=== PATIENT | male | born 1955 | race Caucasian/White ===

== ENCOUNTER → 2017-05-23 | Outpatient (CLI) | payer OTHER ==
[~2017-05-23] MED LIST: IOPAMIDOL (ISOVUE-370) 150 ML BTL IV ONE
== END ==
LOC: FIMAGING 08:21
PROVIDERS: ATTEND Internal Medicine Cardiovascular Disease
DX: I70.212 Atherosclerosis of native arteries of extremities with intermittent claudication, left leg (principal); I73.9 Peripheral vascular disease, unspecified; I70.0 Atherosclerosis of aorta; E78.00 Pure hypercholesterolemia, unspecified; I25.10 Atherosclerotic heart disease of native coronary artery without angina pectoris; Z86.73 Personal history of transient ischemic attack (TIA), and cerebral infarction without residual deficits
CPT/HCPCS: Q9967

== ENCOUNTER 2017-08-18 06:54 | Observation (INO) | payer OTHER ==
[2017-08-18] MEDS ORDERED: DIAZEPAM 5 MG TAB PO ONE (07:18)
[2017-08-18] MEDS ORDERED: ASPIRIN EC 325 MG TAB PO ONE (07:18)
[2017-08-18] MEDS ORDERED: FAMOTIDINE 20 MG TAB PO ONE (07:18)
[2017-08-18] MEDS ORDERED: diphenhydrAMINE 25 MG CAP PO ONE (07:18)
[2017-08-18] MEDS ORDERED: NS 1,000 ML IV ONE (07:18)
--- NOTE | 2017-08-18 07:38 | CPEKG ---
Heart Rate: 67 RR Interval: 896 P-R Interval: 176 QRSD Interval: 112 QT Interval: 404 QTC Interval: 427 P [place]: 73 QRS [place]: 27 T Wave [place]: 49 EKG Severity - ABNORMAL ECG - EKG Impression: SINUS RHYTHM EKG Impression: INCOMPLETE RIGHT BUNDLE BRANCH BLOCK EKG Impression: BORDERLINE R WAVE PROGRESSION, ANTERIOR LEADS Electronically Signed By: Derick Abarca 18-Aug-2017 12:17:21
[2017-08-18 07:57] LABS: PLATELET COUNT 158 10^3/uL (150-400)
[2017-08-18 08:15] LABS: INR 0.89 (0.83-1.16); PROTIME(PATIENT) 12.3 SEC (12.0-15.0)
[2017-08-18] MEDS ORDERED: MIDAZOLAM 2 MG/2 ML VIAL ONE ×3 (08:43→11:05)
[2017-08-18] MEDS ORDERED: IOPAMIDOL (ISOVUE-300) 150 ML BTL ONE ×3 (08:43→10:58)
[2017-08-18] MEDS ORDERED: fentaNYL 100 MCG/2 ML INJ ONE ×2 (08:43→09:56)
[2017-08-18] MEDS ORDERED: LIDOCAINE 1% 300 MG/30 ML SDV ONE (08:44)
--- NOTE | 2017-08-18 09:29 | PDPROPOC ---
Sedation Plan of Care Sedation Plan of Care: vital signs stable, mental status noted, patient educated of risks, benefits, alternatives, patient can tolerate sedation ASA Classification: ASA 2 Planned drugs: fentanyl, midazolam Mallampati Score: Class 2 Mallampati Reference Image: Patient passed 3-3-2 rule?: Yes
--- NOTE | 2017-08-18 09:33 | PDGENHP ---
History & Physical Chief Complaint: dyspnea and claudication History of Present Illness: Pt has known CAD and is s/p CABG. He presents with symptoms of BOWLING and claudication L > R. Relevant Physical Exam: lungs CTA. RRR, S1, S2. Decreased DP and PT on L Cardiorespiratory Assessment: 1. BOWLING - Pt has known CAD and is s/p CABG. He is primarily limited by claudication but does report BOWLING. Plan on coronary angiogram and grafts to evaluate symptoms of BOWLING and pre-op risk stratification if surgery is needed for PVD. 2. Claudication - Pt presents with L > R lower extremity claudication. He has known SFA disease. Plan on angiogram +/- intervention.
[2017-08-18] MEDS ORDERED: HEPARIN 10,000 UNIT/10 ML MDV (1,000 UNIT/ML) ONE (10:32)
[2017-08-18] MEDS ORDERED: NITROGLYCERIN 0.4 MG BTL SL PRN (12:03)
[2017-08-18] MEDS ORDERED: ONDANSETRON 4 MG/2 ML VIAL IVP PRN (12:03)
[2017-08-18] MEDS ORDERED: ATROPINE SULFATE 1 MG/10 ML SYR IVP PRN (12:03)
[2017-08-18] MEDS ORDERED: HYDROCODONE/APAP 5/325 TAB PO PRN (12:03)
[2017-08-18] MEDS ORDERED: OXYCODONE/APAP 5/325 TAB PO PRN (12:03)
--- NOTE | 2017-08-18 12:31 | CPIP ---
[f rep st] INVASIVE CARDIAC PROCEDURE DATE OF PROCEDURE: 08/18/2017 PROCEDURES PERFORMED: 1. Coronary angiography. 2. Bypass graft angiography. 3. Left ventricular end-diastolic pressure. 4. Abdominal aortography. 5. Left lower extremity angiography via contralateral approach with catheter placed in the left exte rnal iliac artery. 6. Right lower extremity angiography via ipsilateral approach with catheter placed in the right comm on iliac artery. INDICATION: 1. Known coronary artery disease with symptoms of dyspnea on exertion concerning for potential class 2-3 angina. 2. Lifestyle limiting claudication suggestive of left SFA stenosis. ACCESS: The patient was prepped and draped in sterile fashion. 1% lidocaine was used to anesthetize the right inguinal region. A 6-Montserratian introducer sheath was placed selectively into the right commo n femoral artery via modified Seldinger technique. CORONARY ANGIOGRAPHY: A 6-Montserratian JL4 was advanced to the left main coronary artery and images obtain ed. The left main coronary artery bifurcated into an LAD and circumflex coronary arteries. The left main coronary artery appeared normal. The left anterior descending coronary artery had a segmental 60% to 70% stenosis in the midvessel. The distal vessel is being filled by patent CLAYTON to LAD graft. The circumflex coronary artery is a large vessel but was nondominant. Circumflex coronary artery w as 100% occluded in the mid vessel. The distal vessel was being fed by a skip graft from the CLAYTON to the OM artery. A 6-[place]serratian JR4 was advanced to the right coronary artery and images obtained. The r ight coronary artery is dominant. The right coronary artery was 100% occluded in the mid vessel. Th e distal vessel is being filled by left to right collaterals. BYPASS GRAFT ANGIOGRAPHY: A 6-Montserratian JR4 was used to engage the saphenous vein graft to right jiménez ry artery. The saphenous vein graft to right coronary artery was 100% occluded. The 6-Montserratian JR4 wa s used to engage the left subclavian artery then exchanged for a 6-Montserratian ZACHARY catheter. The 6-Montserratian ZACHARY catheter was used to engage the CLAYTON to LAD, and skip graft to the circumflex coronary arteries. The CLAYTON to LAD graft was widely patent. The skip graft from the CLAYTON graft to the circumflex was widely patent. ABDOMINAL AORTOGRAPHY: A 6-Montserratian pigtail catheter was placed in the abdominal aorta and images obta ined via power injection through the [employer] system. The distal abdominal aorta was aneurysmal follow ed by a stenotic segment followed by a 2nd aneurysmal segment. It then bifurcated into the left and right common iliac arteries. The left and right common iliac arteries were previously stented. The previously placed stents were widely patent. Left lower extremity angiography via contralateral appr oach with catheter placed in the left external iliac artery. A 5-Montserratian Contra 2 catheter was placed in the distal abdominal aorta and position verified by angiography. The 5-Montserratian Contra 2 catheter was used to engage the left common iliac artery. The left common iliac artery bifurcated into the in ternal and external iliac arteries. The left common iliac artery was previously stented in the proxi mal and ostial segments. The previously placed stent was widely patent. Just distal to the previous ly placed stent there were sequential 30% stenosis present. The ostium of the internal iliac artery was 50% stenosed. The left external iliac artery was free of any significant disease. An angled Gli dewire was then placed in the left common femoral artery and the Contra [address] a [address] Digital Riveright flush catheter. The remainder of the left lower extremity was obtained via hand injection thr ough the straight flush catheter. The left external iliac artery turned into the left common femoral artery. The left external iliac artery and common femoral arteries were normal. The left common fe moral artery then bifurcated into the superficial femoral artery and profunda femoral arteries. The superficial femoral artery was diffusely diseased in the proximal mid segments. In the mid segment, there were sequential 80% stenosis present. These likely represented the lesions that caused the pat ient's symptoms. The left superficial femoral artery then turned into the popliteal artery. The pop liteal artery was free of any significant disease. Below the knee there is 3 vessel runoff. Right l ower extremity angiography via ipsilateral approach with catheter placed in the right common iliac ar sridevi. The straight flush catheter was placed in the right common iliac artery and images obtained. The right common iliac artery bifurcated into the internal and external iliac arteries. The right co mmon iliac artery was previously stented. The previously placed stent was widely patent with no evid ence of significant stenosis. The right internal iliac artery had an ostial 50% stenosis present. T he right external iliac artery had a 20% stenosis present. The right external iliac artery then turn ed into the common femoral artery. The common femoral artery is free of any significant disease. Th e common femoral artery then bifurcated into the superficial femoral artery and profunda femoral genoveva ry. The right superficial femoral artery had sequential 30% stenosis present. The profunda femoral artery is free of any significant disease. The right superficial femoral artery then turned into the popliteal artery. The popliteal artery was free of any significant disease. Below the knee there i s 3 vessel runoff. Intervention of the left superficial femoral artery. It was decided to perform intervention of the l eft superficial femoral artery. It was decided to use antegrade left common femoral artery access fo r the intervention given previous common iliac stenting. The [employer], was used to gain access into the left common femoral artery. A guidewire was advanced followed by the sheath. After injecting t hrough the sheath it was noted that we accessed the common femoral artery and then into the profunda femoral artery. An attempt was made at trying to pull the sheath back and redirect into the superfic ial femoral artery. The sheath came out and it was decided to hold pressure and hold intervention at this time. COMPLICATIONS: None. CONCLUSIONS: 1. Three vessel coronary artery disease. 2. Patent CLAYTON to LAD graft and patent skip graft to the circumflex coronary artery. 3. Occluded saphenous vein graft to right coronary artery and occluded [place] right coronary artery. The right coronary artery is filled via left to right collaterals. 4. Normal left ventricular end-diastolic pressure. 5. A sequential 80% stenosis in the left superficial femoral artery consistent with the patient's sy mptoms of claudication. /[id number]/MODL
[2017-08-18] MEDS ORDERED: FAMOTIDINE 20 MG TAB PO PRN (21:00)
[2017-08-19 08:48] VITALS: BP 123/77
[2017-08-19] MEDS ORDERED: EZETIMIBE 10 MG TAB PO SCH (09:00)
[2017-08-19] MEDS ORDERED: CLOPIDOGREL BISULFATE 75 MG TAB PO SCH (09:00)
[2017-08-19] MEDS ORDERED: ATORVASTATIN CALCIUM 40 MG TAB PO SCH (09:00)
[2017-08-19] MEDS ORDERED: ASPIRIN 325 MG TAB PO SCH (09:00)
--- NOTE | 2017-08-19 09:52 | ASDISCHSUM ---
Discharge Information Plan Status:Home with No Needs Medically Cleared to Leave:08/19/2017 Discharge Date:08/19/2017 CM D/C Disposition:Home, Routine, Self-Care ADT D/C Disposition:Home, Routine, Self-Care Projected Discharge Date:08/19/2017 Transportation at D/C: Discharge Delay Reason: Follow-Up Date:08/19/2017 Discharge Slot: Final Diagnosis: Placement Information Patient Contact Information Contact Name:GIANFRANCO Relationship: Address: Home Phone: Work Phone: City: Alternate Phone: State/LocAsian Code: Email: Financial Information Financial Class:[employer] Primary Plan Desc:ZANE AU Primary Plan Number:[id number] Secondary Plan Desc: Secondary Plan Number: Assessment Information LACE LACE Length of stay for Answers: Less than 1 day current admission Acuity / Level of Answers: No Care: Did the patient have an inpatient admission? Comorbidities - select Answers: Coronary Artery Disease all that apply Other Notes: CABG # of Emergency department Answers: 0 visits in the last 6 months Score: 3 Date Signed: 08/19/2017 09:52 AM Electronically Signed By:Radha Costa RN Intervention Information
--- NOTE | 2017-08-19 15:01 | GDS ---
[f rep st] DISCHARGE SUMMARY DISCHARGE DIAGNOSES: 1. Peripheral vascular disease with failed attempt to cannulate the left superficial femoral artery on this admission. 2. Known coronary artery disease status post bypass surgery in 2011, status post left heart catheter ization on this admission. 3. Dyslipidemia. 4. Former tobacco abuse. PROCEDURES: 1. Left heart catheterization that showed 3 vessel coronary artery disease. There is a patent CLAYTON to LAD graft and patent skip graft to the circumflex coronary artery. There was an occluded saphenou s vein graft to the right coronary artery and an occluded w[place]ot right coronary artery. The right co ronary artery is filled via weiq-lq-yyfhk collaterals. 2. Peripheral angiography. There is sequential 80% stenosis in the left superficial femoral artery consistent with the patient's claudication symptoms. An attempt was made to cannulate this, but upon trying to pull the sheath back and redirect it into the superficial femoral artery, the sheath came out and the study was aborted at that point. PHYSICIANS: Tylor Cosby MD BRIEF HISTORY: Please see dictated H and P from our office for complete details. In brief, the rehana ent is a 62-year-old male with a known history of coronary artery disease status post coronary artery bypass grafting, dyslipidemia, who presented to Dr. Cosby with complaints of profound fatigue. Thi s also had preceded his previous intervention with bypass surgery. Additionally, he has been noting severe leg pains on ambulation. HOSPITAL COURSE BY PROBLEM: 1. Coronary artery disease. His RCA graft is occluded, but he has zbvh-mf-[id number] collaterals present . He may maintain ongoing medical therapy. 2. Failed attempt to cannulate the left SFA. He will likely come back in 2 weeks time for repeat in tervention. 3. Dyslipidemia. Total cholesterol is 138, LDL 70, HDL of 45, triglycerides 116. PHYSICAL EXAM: VITAL SIGNS: On day of discharge, blood pressure 123/77, heart rate of 74, respirati ons 18, O2 saturation 93% on room air. GENERAL: He is a very pleasant male in no apparent distress. HEART: Regular rate and rhythm and rhythm. EXTREMITIES: Bilateral groin sites without bruit or ecchymosis. There is trace to 1+ PT and DP pulse s bilaterally. CBC on day of discharge is WBC 5.5, hemoglobin 14.4, hematocrit 42.5, platelet count of 144. RESULTS PENDING: None. DIET: Cardiac. ACTIVITY: Groin precautions were reviewed. DISCHARGE MEDICATIONS: Please see med reconciliation. He may resume his home ranitidine, Zetia, carissa pidogrel, atorvastatin, and aspirin therapy. FOLLOWUP INSTRUCTIONS: 1. Followup for groin check in 1 week's time. 2. Follow up with Dr. Cosby for repeat attempt at left SFA intervention. /[id number]/MODL
== END 2017-08-19 10:50 | disposition home or self-care (01) ==
LOC: FCATH 06:54 → F2W 12:03
PROVIDERS: ADMIT Internal Medicine Cardiovascular Disease; ATTEND Internal Medicine Cardiovascular Disease
PROC: 04HJ33Z Insertion of Infusion Device into Left External Iliac Artery, Percutaneous Approach (ICD-10-PCS; principal; 2017-08-18)
PROC: 04HC33Z Insertion of Infusion Device into Right Common Iliac Artery, Percutaneous Approach (ICD-10-PCS; principal; 2017-08-18)
PROC: B2111ZZ Fluoroscopy of Multiple Coronary Arteries using Low Osmolar Contrast (ICD-10-PCS; principal; 2017-08-18)
PROC: 4A023N7 Measurement of Cardiac Sampling and Pressure, Left Heart, Percutaneous Approach (ICD-10-PCS; principal; 2017-08-18)
PROC: B2151ZZ Fluoroscopy of Left Heart using Low Osmolar Contrast (ICD-10-PCS; principal; 2017-08-18)
DX: I73.9 Peripheral vascular disease, unspecified (principal); I25.10 Atherosclerotic heart disease of native coronary artery without angina pectoris; E78.5 Hyperlipidemia, unspecified; Z87.891 Personal history of nicotine dependence
CPT/HCPCS: C1769; G0378; J0461; J1644; J2250; J3010; Q9967

== ENCOUNTER 2017-09-05 06:59 | Observation (INO) | payer OTHER ==
[2017-09-05] MEDS ORDERED: diphenhydrAMINE 25 MG CAP PO ONE ×2 (07:03→07:22)
[2017-09-05] MEDS ORDERED: DIAZEPAM 5 MG TAB PO ONE (07:03)
[2017-09-05] MEDS ORDERED: FAMOTIDINE 20 MG TAB PO ONE (07:03)
[2017-09-05] MEDS ORDERED: ASPIRIN EC 325 MG TAB PO ONE (07:03)
[2017-09-05] MEDS ORDERED: NS 1,000 ML IV ONE (07:03)
--- NOTE | 2017-09-05 07:19 | CPEKG ---
Heart Rate: 76 RR Interval: 789 P-R Interval: 168 QRSD Interval: 114 QT Interval: 408 QTC Interval: 459 P [place]: 84 QRS [place]: 29 T Wave [place]: 53 EKG Severity - ABNORMAL ECG - EKG Impression: SINUS RHYTHM EKG Impression: INCOMPLETE RIGHT BUNDLE BRANCH BLOCK Electronically Signed By: Kvng Craig 05-Sep-2017 07:38:43
[2017-09-05] MEDS ORDERED: DIAZEPAM 5 MG TAB ONE (07:22)
[2017-09-05] MEDS ORDERED: FAMOTIDINE 20 MG TAB ONE (07:22)
[2017-09-05 07:37] LABS: PLATELET COUNT 169 10^3/uL (150-400)
[2017-09-05 07:45] LABS: INR 0.92 (0.83-1.16); PROTIME(PATIENT) 12.6 SEC (12.0-15.0)
[2017-09-05] MEDS ORDERED: fentaNYL 100 MCG/2 ML INJ ONE ×2 (08:34→09:46)
[2017-09-05] MEDS ORDERED: MIDAZOLAM 2 MG/2 ML VIAL ONE ×3 (08:34→09:31)
[2017-09-05] MEDS ORDERED: LIDOCAINE 1% 300 MG/30 ML SDV ONE ×2 (08:34→09:10)
[2017-09-05] MEDS ORDERED: IOPAMIDOL (ISOVUE-300) 150 ML BTL ONE (08:34)
[2017-09-05] MEDS ORDERED: HEPARIN 10,000 UNIT/10 ML MDV (1,000 UNIT/ML) ONE (08:34)
--- NOTE | 2017-09-05 09:19 | PDGENHP ---
History & Physical Chief Complaint: claudication History of Present Illness: Pt has known CAD and PVD. He presents with lifestyle limiting claudication of the L calf. Pt has known high grade sequential lesions in the L SFA. Here for planned intervention. Pertinent Past, Social, Family History: previous history of smoking Relevant Physical Exam: lungs CTA. CV RRR s1, s2, No M/R/G. No edema. decreased DP and PT on L. A, A, O3 Cardiorespiratory Assessment: lifestyle limiting claudication. Plan for peripheral intervention.
[2017-09-05] MEDS ORDERED: CLOPIDOGREL BISULFATE 75 MG TAB ONE (10:51)
[2017-09-05] MEDS ORDERED: CLOPIDOGREL BISULFATE 75 MG TAB PO ONE (11:26)
[2017-09-05] MEDS ORDERED: TEMAZEPAM 15 MG CAP PO PRN (11:26)
[2017-09-05] MEDS ORDERED: ATROPINE SULFATE 1 MG/10 ML SYR IVP PRN (11:26)
[2017-09-05] MEDS ORDERED: NITROGLYCERIN 0.4 MG BTL SL PRN (11:26)
[2017-09-05] MEDS ORDERED: LORazepam 2 MG/ML INJ IVP PRN (11:26)
[2017-09-05] MEDS ORDERED: ONDANSETRON 4 MG/2 ML VIAL IVP PRN (11:26)
[2017-09-05] MEDS ORDERED: NON-FORMULARY NEW DRUG (Ranitidine Hcl [Ranitidine Hcl] 150 MG) PO PRN (11:28)
[2017-09-05] MEDS ORDERED: FAMOTIDINE 20 MG TAB PO PRN (11:34)
--- NOTE | 2017-09-05 11:37 | CPIP ---
[f rep st] INVASIVE CARDIAC PROCEDURE DATE OF PROCEDURE: 09/05/2017 PROCEDURES PERFORMED: Left lower extremity angiography via contralateral approach with catheter plac ed in the left external iliac artery. INDICATION: 1. Lifestyle limiting claudication. 2. Known sequential 80% stenoses in the mid left SFA. ACCESS: Patient was prepped and draped in sterile fashion. 1% lidocaine was used to anesthetize the right inguinal region. A 6-Albanian introducer sheath was placed selectively in the right common femo ral artery via modified Seldinger technique. The 6-Albanian introducer sheath was later exchanged for a 6-Albanian [place]aver[place] Destination sheath via exchange wire technique. The 6-Albanian Waverly Destinatio n sheath was later exchanged for a 6-Albanian introducer sheath via exchange wire technique. Left lowe r extremity angiography via contralateral approach with catheter placed in the left external iliac ar sridevi. A 5-Albanian Contra II catheter was advanced into the distal abdominal aorta and reformed into i ts usual position. It was used to selectively engage the left common iliac artery. A Glidewire was then passed into the left superficial femoral artery and the Contra II catheter was exchanged for a 6 -Albanian [place] Destination Sheath, which was advanced to the left external iliac artery. Images of the left lower extremity were obtained via hand injection through the 6-Albanian [place]aver[place] Destination Sheath. The left external iliac artery turned into the left common femoral artery. The left common femoral artery then bifurcated into the superficial femoral artery and profunda femoral artery. The left common femoral artery was free of any significant disease. The left profunda femoral artery was also free of any significant disease. The left superficial femoral artery was diffusely diseased. In the mid segment of the left superficial femoral artery there is sequential 80% stenosis present. These do not appear to be extensively calcified. Just distal to these lesions extending into the dis zackary superficial femoral artery there is long segmental 40% to 50% stenosis present. This, too, did n ot appear to be heavily calcified. An angled Glidewire was then advanced into the popliteal artery a nd position verified by angiography. A 6.0 x 150 clinical laboratory manager balloon was used to pre-dilate the lesion. This was then followed by 6.0 x 150 drug coated balloon. Followup angiography demonstrated dissecti on involving the proximal to mid portion of the vessel as well as a non-flow limiting dissection in t he more distal portion of the vessel. It was decided that stenting would be required to manage these areas of dissection. A 7.0 x 120 epic stent was then placed in the mid to distal superficial femora l artery and deployed. Followup angiography demonstrated non-flow limiting dissection flap in the di stal superficial femoral artery. The stent was then completely expanded in the proximal portion of t he superficial femoral artery. The stent was then post dilated with a 6.0 x 150 clinical laboratory manager balloon. Fo llowup angiography demonstrated the extension of the dissection flap proximally. It was decided to p lace a 2nd epic stent, a 7.0 x 60 stent was then placed in the proximal vessel and deployed. Followu p angiography demonstrated tacking up of the dissection flap and no limitation in blood flow. The st ent was then post dilated with a 6.0 x 150 clinical laboratory manager balloon. Followup angiography here again demonstr ated no evidence of proximal dissection and no limitation of flow. The non-flow limiting distal edge dissection remained. COMPLICATIONS: None. CONCLUSIONS: 1. Sequential 80% stenoses in the mid left superficial femoral artery. 2. Status post successful drug-coated balloon followed by epic stent placement in the mid left super ficial femoral artery. /[id number]/MODL
--- NOTE | 2017-09-05 11:40 | CPEKG ---
Heart Rate: 59 RR Interval: 1017 P-R Interval: 200 QRSD Interval: 114 QT Interval: 448 QTC Interval: 444 P [place]: 71 QRS [place]: 32 T Wave [place]: 62 EKG Severity - ABNORMAL ECG - EKG Impression: SINUS RHYTHM EKG Impression: INCOMPLETE RIGHT BUNDLE BRANCH BLOCK Electronically Signed By: Kvng Craig 06-Sep-2017 09:29:52
--- NOTE | 2017-09-05 16:12 | ASMTCMCOM ---
CM Note CM Note Notes: 09/05/2017 Case Management Note Reviewed chart. Pt admitted for left lower extremity angiography via contralateral approach with catheter placed in the left extermal iliac artery. Pt is a . There are no PT or OT evals ordered at this time. Cardiac outpatient rehab consult has been requested. Case Management unable to meet pt today d/t procedure. Case Management to meet w/pt on Friday to discuss d/c needs. Case Management d/c poc: to be determined. Case Management to follow. Date Signed: 09/05/2017 04:11 PM Electronically Signed By:Radha Costa RN
[2017-09-06 04:15] LABS: PLATELET COUNT 151 10^3/uL (150-400)
[2017-09-06 07:56] VITALS: BP 118/71
[2017-09-06] MEDS ORDERED: CLOPIDOGREL BISULFATE 75 MG TAB PO SCH ×2 (09:00)
[2017-09-06] MEDS ORDERED: ATORVASTATIN CALCIUM 40 MG TAB PO SCH (09:00)
[2017-09-06] MEDS ORDERED: PANTOPRAZOLE SODIUM 40 MG TAB PO SCH (09:00)
[2017-09-06] MEDS ORDERED: EZETIMIBE 10 MG TAB PO SCH (09:00)
[2017-09-06] MEDS ORDERED: NON-FORMULARY NEW DRUG (Atorvastatin Calcium [Atorvastatin Calcium] 80 MG) PO SCH (09:00)
[2017-09-06] MEDS ORDERED: ASPIRIN EC 325 MG TAB PO SCH (09:00)
[2017-09-06] MEDS ORDERED: OMEPRAZOLE MAGNESIUM 20 MG PO SCH (09:00)
--- NOTE | 2017-09-06 09:56 | GDS ---
[f rep st] DISCHARGE SUMMARY DISCHARGE DIAGNOSES: 1. Severe peripheral vascular disease with a known 80% stenosis to the mid left superficial femoral artery. He is status post successful drug-coated balloon followed by Epic stent placement x2 in the mid left superficial femoral artery. 2. Previous stenting of the bilateral common iliac arteries. 3. History of coronary artery disease, status post 3 vessel coronary artery bypass graft. 4. Hyperlipidemia. 5. History of tobacco use, quit 6 months ago. HOSPITAL COURSE: For a detailed H and P, please see prior dictation. Briefly, the patient is a 62-y ear-old male with a history of coronary artery disease status post 3 vessel CABG as well as severe pe ripheral vascular disease. He had stenting of his bilateral common iliac arteries in the past. He w as complaining of claudication of his left calf and a CT with bilateral lower extremity runoff showed a high-grade stenosis within the mid left superficial femoral artery. The patient was electively ad mitted to the hospital on 09/05/2017, for intervention. The procedure was performed by Dr. Tylor griffiths. He had an 80% stenosis within the mid left superficial femoral artery. This was initially pre-d ilated with a 6.0 x 150 food service assistant balloon. This was then followed by 6 x 150 drug coated balloon. Fol lowup angiography demonstrated dissection involving the proximal and mid portion of the vessel as wel l as veg-[id number]-[id number] dissection in the more distal portion of the vessel. Dr. Cosby then proceede d with placing a 7 x 120 mm Epic stent followed by a 7.0 x 60 mm stent. The following morning, the p atient complained of mild discomfort of his left groin down into his calf. He rated it 2 to 3/10. T ylenol did relieve his discomfort. He has been ambulating in the halls and is unable to tell whether or not this makes the discomfort worse. He denies any discomfort of the right groin where access wa s obtained for the procedure. Denies any chest discomfort. He has 2+ dorsalis pedis pulses as well as posterior tibialis. His EKG the day of discharge revealed normal sinus rhythm with an incomplete right bundle branch block. PHYSICAL EXAMINATION: GENERAL: Patient appears in no acute distress. VITALS: Blood pressure 118/7 1, heart rate 84, oxygen saturation 97% on room air, afebrile. LUNGS: Clear to auscultation. No wh eezes, rhonchi, or crackles auscultated. CARDIAC: Regular rate and rhythm without any murmurs, rubs , or gallops appreciated. EXTREMITIES: Bilateral femoral arteries are clean and intact without any evidence of infection or hematoma. He has a good femoral pulse located on the left. His access site on the right is clean and intact without any evidence of infection. He has 2+ left dorsalis pedis a nd posterior tibialis pulses. He has 1+ on the right. DISCHARGE MEDICATIONS: Plavix 75 mg daily, aspirin 325 mg daily, Zetia 10 mg daily, Lipitor 80 mg da bj, ranitidine 150 mg b.i.d. p.r.n., omeprazole 20 mg daily. PLAN: The patient is currently stable and ready for discharge home. He will use Tylenol for pain co ntrol. He has been given groin precautions. He will follow up in our office as scheduled with Dr. Issac Cosby on 10/15 at 9:30 a.m. /[id number]/MODL
--- NOTE | 2017-09-06 13:08 | ASDISCHSUM ---
Discharge Information Plan Status:Home with No Needs Medically Cleared to Leave:09/06/2017 Discharge Date:09/06/2017 09:47 AM CM D/C Disposition:Home, Routine, Self-Care ADT D/C Disposition:Home, Routine, Self-Care Projected Discharge Date:09/06/2017 09:47 AM Transportation at D/C:None or Unknown Discharge Delay Reason: Follow-Up Date:09/06/2017 09:47 AM Discharge Slot:1 - 8:01 am - 12:00 noon Final Diagnosis: Severe PVD w/ known 80% stenosis of femoral artery, s/p epic stent placement in fem oral artery, prior stenting bilateral common iliac arteries, CAD s/p CABG x 3, hyperlipidemia, hx of tobacco use Placement Information Patient Contact Information Contact Name:GIANFRANCO Relationship: Address: Home Phone: Work Phone: City: Alternate Phone: State/[place] Code: Email: Financial Information Financial Class:[employer] Primary Plan Desc:ZANE AU Primary Plan Number:[id number] Secondary Plan Desc: Secondary Plan Number: Assessment Information LACE LACE Length of stay for Answers: 1 day current admission Acuity / Level of Answers: No Care: Did the patient have an inpatient admission? Comorbidities - select Answers: Coronary Artery Disease all that apply Peripheral vascular disease Other Notes: Hyperlipidemia, s/p CAB G x 3, prior smoker # of Emergency department Answers: 0 visits in the last 6 months Score: 5 Date Signed: 09/06/2017 01:07 PM Electronically Signed By:Lani Askew RN [facility] Progress Note SRAVAN Sousa CM Note Notes: 09/05/2017 Case Management Note Reviewed chart. Pt admitted for left lower extremity angiography via contralateral approach with catheter placed in the left extermal iliac artery. Pt is a . There are no PT or OT evals ordered at this time. Cardiac outpatient rehab consult has been requested. Case Management unable to meet pt today d/t procedure. Case Management to meet w/pt on Friday to discuss d/c needs. Case Management d/c poc: to be determined. Case Management to follow. Date Signed: 09/05/2017 04:11 PM Electronically Signed By:Radha Costa RN Case Management Discharge Plan Note Case Management Discharge Discharge Order Complete? Answers: Yes Patient to Obtain Answers: Independently Medications Transportation Arranged Answers: Other Notes: Unknown EMTALA Complete Answers: No Notes: N/A Case Management Transport Answers: No Notes: N/A Form Complete Faxed Final Orders Answers: No Notes: N/A Agency/Facility Transfer Answers: No Notes: N/A Report Printed & Faxed to Receiving Agency Discharge Comments Notes: Reviewed chart, spoke with Dr. Hunt regarding discharge plan of care, pt's progress. Per Dr. Hunt, pt to discharge home independently today with no identified needs. Pt s/p stent placement to left femoral artery secondary to severe peripheral vascular disease. Pt to follow up as directed. No IM signed, not applicable. CM available for any further issues or concerns. Discharge Plan: Home independently Date Signed: 09/06/2017 01:05 PM Electronically Signed By:Lani Askew RN Intervention Information
== END 2017-09-06 09:47 | disposition home or self-care (01) ==
LOC: FCATH 06:59 → F2W 11:26
PROVIDERS: ADMIT Internal Medicine Cardiovascular Disease; ATTEND Internal Medicine Cardiovascular Disease
PROC: 047L34Z Dilation of Left Femoral Artery with Drug-eluting Intraluminal Device, Percutaneous Approach (ICD-10-PCS; principal; 2017-09-05)
DX: I70.212 Atherosclerosis of native arteries of extremities with intermittent claudication, left leg (principal); I25.10 Atherosclerotic heart disease of native coronary artery without angina pectoris; Z95.1 Presence of aortocoronary bypass graft; E78.5 Hyperlipidemia, unspecified; Z87.891 Personal history of nicotine dependence
CPT/HCPCS: C1725; C1769; C1876; G0378; J0461; J1644; J2250; J2405; J3010; Q9967